=== PATIENT | female | born 1945 | race Caucasian/White ===

== ENCOUNTER 2023-02-28 14:03 | Emergency (ER) | payer MEDICARE ==
[2023-02-28] MEDS ORDERED: Boostrix 0.5 ML (Tdap) VIAL (>/=7 yrs of age) ONE (14:36)
[2023-02-28] MEDS ORDERED: Bupivacaine PF 0.5% 30 ML VIAL ONE (14:36)
== END 2023-02-28 15:36 | disposition home or self-care (01) ==
LOC: CSHERS 14:03
DX: S01.511A Laceration without foreign body of lip, initial encounter (principal); E03.9 Hypothyroidism, unspecified; Z23 Encounter for immunization; W19.XXXA Unspecified fall, initial encounter
CPT/HCPCS: 12011; 70450; 70486; 90471; 90715; 93005; S0020